=== PATIENT | female | born 1955 | race Two or more races ===

== ENCOUNTER 2023-03-01 07:25 | Outpatient (CLI) | payer OTHER ==
[~2023-03-01 07:25] MED LIST: BUSPIRONE HCL10 MG PO; BUSPIRONE HCL5 MG; COZAAR100 MG PO; ESCITALOPRAM OX20 MG; LIPITOR20 MG PO; LISINOPRIL10 MG; QUETIAPINE FUM100 MG; SIMVASTATIN20 MG; TRAZODONE HCL100 MG
== END 2023-03-01 07:26 | disposition home or self-care (01) ==
LOC: NUCLEAR 07:25
PROVIDERS: ATTEND Internal Medicine
DX: I25.10 Atherosclerotic heart disease of native coronary artery without angina pectoris (principal)
CPT/HCPCS: 78452; 93017; A9500